=== PATIENT | male | born 1995 | race Caucasian/White ===

== ENCOUNTER 2019-05-25 17:39 | Emergency (ER) | payer MEDICAID ==
[~2019-05-25] VITALS: Ht 177.8 cm; Wt 68.2 kg
[2019-05-25 17:46] VITALS: Ht 177.8 cm; Wt 68.2 kg
[2019-05-25] MEDS ORDERED: BUTALB-APAP-CA1 EACH PO (18:36)
[2019-05-25] MEDS ORDERED: PREDNISONE20 MG PO (18:36)
[2019-05-25 18:51] VITALS: BP 132/86
== END 2019-05-25 18:53 | disposition home or self-care (01) ==
LOC: D.ER 17:39
DX: R51 Headache (principal); J32.9 Chronic sinusitis, unspecified